=== PATIENT | female | born 1990 | race Caucasian/White ===

== ENCOUNTER 2023-05-11 01:30 | Emergency (ER) | payer SELFPAY ==
[2023-05-11 01:35] VITALS: BP 108/75; PULSE 71; RESP 17; TEMP 98.4; BMI 21.4
[2023-05-11] MEDS: ACETAMINOPHEN 325 MG TABLET (FP) PO ONE (02:12)
== END 2023-05-11 02:31 | disposition home or self-care (01) ==
LOC: FER 01:30
DX: M79.672 Pain in left foot (principal); X50.1XXA Overexertion from prolonged static or awkward postures, initial encounter
CPT/HCPCS: 73610-TC-LT-FY; 73630-TC-LT; 99283-25

== ENCOUNTER 2023-10-09 23:05 | Emergency (ER) | payer SELFPAY ==
[2023-10-09 23:14] VITALS: BP 103/71; PULSE 87; RESP 18; TEMP 98.9; BMI 21.4
[2023-10-09 23:58] LABS: BASO % 0.1 % (0-2.0); EOS % 0.2 % (0-4.5); HEMATOCRIT 39.5 % (32.4-45.2); HEMOGLOBIN 13.3 GM/dL (10.7-15.3); LYMPH % 10.8 % (8-40); MCH 29.5 pg (25.7-33.7); MCHC 33.7 g/dl (32.0-36.0); MEAN CELL VOLUME 87.4 fl (80-96); MEAN PLT VOLUME 8.7 fl (7.5-11.1); MONO % 0.6 % (3.8-10.2); NEUT % 88.3 % (42.8-82.8); PLATELET COUNT 250 10^3/uL (134-434); RBC 4.52 M/mm3 (3.60-5.2); RDW 12.8 % (11.6-15.6); WHITE BLOOD COUNT 8.3 K/mm3 (4.0-10.0)
[2023-10-10 00:05] LABS: POTASSIUM 3.6 mmol/L (3.5-5.1)
[2023-10-10 00:06] LABS: CALCIUM 9.6 mg/dL (8.5-10.1)
[2023-10-10 00:07] LABS: BLOOD UREA NITROGEN 6.5 mg/dL (7-18)
[2023-10-10 00:10] LABS: CREATININE 0.9 mg/dL (0.55-1.3)
[2023-10-10] MEDS ORDERED: morphine SULFATE 4 MG/ML VIAL ONE (00:10)
[2023-10-10] MEDS: LACTATED RINGERS SOLUTION 1000 ML INFUS.BAG IV ONE (00:16)
[2023-10-10] MEDS: morphine CARPU-JECT 4 MG/1 ML DISP.SYRIN IVPUSH ONE (00:16)
[2023-10-10] MEDS ORDERED: ONDANSETRON 4 MG/2 ML VIAL ONE (00:20)
[2023-10-10] MEDS: ONDANSETRON 4 MG/2 ML VIAL IVPUSH ONE (00:24)
[2023-10-10] MEDS: KETOROLAC TROMETHAMINE 30 MG/1 ML VIAL IM ONE (01:04)
[2023-10-10 01:17] LABS: INR 1.03 (0.83-1.09); PROTHROMBIN TIME (PATIENT) 11.8 SEC (9.7-13.0)
[2023-10-10 02:34] LABS: URINE APPEARANCE CLEAR; URINE BILIRUBIN NEGATIVE (NEGATIVE); URINE COLOR YELLOW; URINE GLUCOSE (UA) NEGATIVE (NEGATIVE); URINE KETONE 1+ (NEGATIVE); URINE LEUK ESTERASE NEGATIVE (NEGATIVE); URINE NITRITE NEGATIVE (NEGATIVE); URINE PROTEIN NEGATIVE (NEGATIVE); URINE UROBILINOGEN 0.2 mg/dL (0.2-1.0)
== END 2023-10-10 02:24 | disposition home or self-care (01) ==
LOC: JER 23:05
PROC: 3E033NZ Introduction of Analgesics, Hypnotics, Sedatives into Peripheral Vein, Percutaneous Approach (ICD-10-PCS; principal; 2023-10-10)
PROC: 3E033GC Introduction of Other Therapeutic Substance into Peripheral Vein, Percutaneous Approach (ICD-10-PCS; 2023-10-10)
DX: R10.84 Generalized abdominal pain (principal); R19.7 Diarrhea, unspecified; R11.10 Vomiting, unspecified
CPT/HCPCS: 36415; 74177-TC; 76830-TC; 76857; 80048; 81003; 84702; 85025; 85610; 86850; 86900; 86901; 87086; 99285-25; Q9967

== ENCOUNTER 2023-10-12 16:10 | Emergency (ER) | payer SELFPAY ==
[2023-10-12 16:22] VITALS: BP 115/69; PULSE 67; RESP 18; TEMP 97.9; BMI 21.4
[2023-10-12] MEDS ORDERED: KETOROLAC TROMETHAMINE 15 MG/ML VIAL ONE (17:25)
[2023-10-12] MEDS: KETOROLAC TROMETHAMINE 15 MG/ML VIAL IVPUSH ONE (17:38)
[2023-10-12 17:41] LABS: BASO % 0.3 % (0-2.0); EOS % 1.9 % (0-4.5); HEMATOCRIT 37.4 % (32.4-45.2); LYMPH % 19.3 % (8-40); MCHC 34.8 g/dl (32.0-36.0); MEAN CELL VOLUME 86.2 fl (80-96); MEAN PLT VOLUME 8.1 fl (7.5-11.1); MONO % 7.2 % (3.8-10.2); NEUT % 71.3 % (42.8-82.8); PLATELET COUNT 235 10^3/uL (134-434); RBC 4.33 M/mm3 (3.60-5.2); RDW 12.7 % (11.6-15.6)
[2023-10-12 17:42] LABS: EPI CELLS 7 /uL (0-25.1); HYALINE CASTS 0 /uL (0-3.1); URINE APPEARANCE CLEAR; URINE BACTERIA 206 /uL (0-1359); URINE BILIRUBIN NEGATIVE (NEGATIVE); URINE COLOR YELLOW; URINE GLUCOSE (UA) NEGATIVE (NEGATIVE); URINE KETONE NEGATIVE (NEGATIVE); URINE LEUK ESTERASE 1+ (NEGATIVE); URINE NITRITE NEGATIVE (NEGATIVE); URINE PROTEIN NEGATIVE (NEGATIVE); URINE RBC 220 /uL (0-23.9); URINE UROBILINOGEN 0.2 mg/dL (0.2-1.0); URINE WBC 32 /uL (0-25.8)
[2023-10-12 18:00] LABS: POTASSIUM 3.5 mmol/L (3.5-5.1)
[2023-10-12 18:02] LABS: CALCIUM 8.7 mg/dL (8.5-10.1)
[2023-10-12 18:03] LABS: ALBUMIN 3.8 g/dl (3.4-5.0)
[2023-10-12 18:06] LABS: CREATININE 0.7 mg/dL (0.55-1.3)
[2023-10-12 18:07] LABS: BILIRUBIN,TOTAL 0.4 mg/dL (0.2-1)
[2023-10-12 18:08] LABS: TOT PROT 7.2 g/dl (6.4-8.2)
[2023-10-12] MEDS ORDERED: cefTRIAXone SODIUM 1 GM VIAL ONE (19:25)
[2023-10-12] MEDS ORDERED: CEFTRIAXONE 1 GM/50 ML BAG ONE (19:26)
== END 2023-10-12 23:06 | disposition home or self-care (01) ==
LOC: JER 16:10
PROC: 3E03329 Introduction of Other Anti-infective into Peripheral Vein, Percutaneous Approach (ICD-10-PCS; principal; 2023-10-12)
PROC: 3E0333Z Introduction of Anti-inflammatory into Peripheral Vein, Percutaneous Approach (ICD-10-PCS; 2023-10-12)
DX: R10.30 Lower abdominal pain, unspecified (principal); N39.0 Urinary tract infection, site not specified; N85.00 Endometrial hyperplasia, unspecified; N93.9 Abnormal uterine and vaginal bleeding, unspecified
CPT/HCPCS: 36415; 76830-TC; 80053; 81003; 84702; 85025; 87086; 99284-25